=== PATIENT | female | born 1950 | race Caucasian/White ===

== ENCOUNTER 2023-05-16 03:17 | Emergency (ER) | payer SELFPAY ==
[~2023-05-16] VITALS: Ht 177.8 cm; Wt 99.8 kg
[2023-05-16] MEDS ORDERED: OXYMETAZOLINE HCL NASAL SPRAY 30 ML BOTTLE NS ONE (04:00)
[2023-05-16 05:44] LABS: BASOPHILS % (AUTO) 0.3 % (0.0-2.0); EOSINOPHILS # (AUTO) 0.1 K/uL (0.0-0.7); EOSINOPHILS % (AUTO) 1.4 % (0.0-6.0); HEMATOCRIT 40 % (33-45); HEMOGLOBIN 13.2 g/dL (11.5-14.8); LYMPHOCYTES % (AUTO) 18.7 % (20.0-44.0); MEAN CORPUSCULAR HEMOGLOBIN 31 PG (26.0-33.0); MEAN CORPUSCULAR HGB CONC 33 g/dl (31.0-36.0); MEAN CORPUSCULAR VOLUME 95 fL (82-100); MONOCYTES # (AUTO) 0.4 K/uL (0.1-1.30); MONOCYTES % (AUTO) 3.7 % (2.0-12.0); NEUTROPHILS # (AUTO) 8.1 K/uL (1.8-8.9); NEUTROPHILS % (AUTO) 75.9 % (43.0-81.0); PLATELET COUNT (AUTO) 268 K/uL (150-450); RED BLOOD CELL COUNT(AUTO) 4.21 MIL/uL (4.0-5.2); RED CELL DISTRIBUTION WIDTH 13.3 % (11.5-15.0); WHITE BLOOD COUNT (AUTO) 10.6 K/uL (4.3-11.0)
[2023-05-16 05:54] LABS: CREATININE 0.8 mg/dL (0.6-1.3); POTASSIUM 3.7 mmol/L (3.5-5.1)
[2023-05-16 05:57] LABS: INR 0.99 (0.91-1.10); PROTHROMBIN TIME 10.5 SECS (9.2-11.1)
[2023-05-16 06:07] VITALS: BP 128/96; TEMP 98.1; O2SAT 99
== END 2023-05-16 06:08 | disposition home or self-care (01) ==
LOC: ER 03:50
DX: R04.0 Epistaxis (principal)
CPT/HCPCS: 36415; 80048-TC; 85025-TC; 85610-TC

== ENCOUNTER 2023-05-16 14:16 | Emergency (ER) | payer OTHER ==
[~2023-05-16] VITALS: Ht 177.8 cm; Wt 56.2 kg
[2023-05-16] MEDS ORDERED: SILVER NITRATE APPLICATOR 1 EA BOX ONE (16:13)
[2023-05-16] MEDS ORDERED: OXYMETAZOLINE HCL NASAL SPRAY 30 ML BOTTLE NS ONE ×2 (16:13→16:30)
[2023-05-16] MEDS ORDERED: TRANEXAMIC ACID 1,000 MG/10 ML VIAL ONE (16:14)
[2023-05-16] MEDS ORDERED: TRANEXAMIC ACID 1,000 MG/10 ML VIAL NS ONE (16:30)
[2023-05-16] MEDS ORDERED: SILVER NITRATE APPLICATOR 1 EA BOX TP ONE (16:30)
[2023-05-16] MEDS ORDERED: HYDROCODONE/APAP 5/325MG TABLET PO ONE (17:00)
[2023-05-16] MEDS ORDERED: HYDROCODONE/APAP 5/325MG TABLET ONE (17:11)
[2023-05-16 20:31] VITALS: BP 146/88; TEMP 98.2; O2SAT 98
== END 2023-05-16 20:32 | disposition home or self-care (01) ==
LOC: ER 14:26
DX: R04.0 Epistaxis (principal)
CPT/HCPCS: 99284; A4217